=== PATIENT | female | born 1980 | race Caucasian/White ===

== ENCOUNTER 2019-07-27 11:34 | Emergency (ER) | payer SELFPAY ==
[~2019-07-27] VITALS: Ht 170.2 cm; Wt 64.4 kg
[2019-07-27 12:21] LABS: URINE HCG NEGATIVE (NEG)
[2019-07-27 12:38] LABS: CLARITY,URINE CLEAR (Clear); COLOR,URINE STRAW (Yellow); GLUCOSE, URINE NEGATIVE (Neg); KETONES,URINE NEGATIVE (Neg); LEUKOCYTE ESTERASE ,URINE NEGATIVE (Neg); NITRITES, URINE NEGATIVE (Neg); OCCULT BLOOD,URINE NEGATIVE (Neg); PH,URINE 6.5 (4.8-8.0); PROTEIN,URINE NEGATIVE (Neg); UROBILINOGEN,URINE 0.2 E.U/dL (0.2-1.0)
[2019-07-27 12:39] LABS: UA COLLECTION TYPE CLN CATCH MIDSTREAM
[2019-07-27 13:10] LABS: BASOPHILS % (AUTO) 0.3 % (0-1); EOSINOPHILS # (AUTO) 0.1 X10'3 (0-0.9); EOSINOPHILS % (AUTO) 1.2 % (0-6); HEMATOCRIT 33.7 % (35.0-45.0); HEMOGLOBIN 10.8 g/dl (12.0-16.0); LYMPHOCYTES # (AUTO) 2.2 X10'3 (1.1-4.8); LYMPHOCYTES % (AUTO) 27.8 % (21-51); MEAN CORPUSCULAR HEMOGLOBIN 25.5 PG (27.0-31.0); MEAN CORPUSCULAR VOLUME 79.4 FL (78-98); MEAN PLATELET VOLUME 8.4 FL (7.4-10.4); MONOCYTES # (AUTO) 0.5 X10'3 (0-0.9); MONOCYTES % (AUTO) 6.4 % (2-12); NEUTROPHILS # (AUTO) 5.1 X10'3 (1.8-7.7); NEUTROPHILS % (AUTO) 64.3 % (42-75); PLATELET COUNT 267 X10'3 (140-440); RED BLOOD COUNT 4.25 X10'6 (4.20-5.60); RED CELL DISTRIBUTION WIDTH 17.6 % (11.5-14.5)
[2019-07-27 13:21] LABS: ALANINE AMINOTRANSFERASE 31 U/L (12-78); ALBUMIN 3.8 G/DL (3.4-5.0); ALBUMIN/GLOBULIN RATIO 1.1 (1.1-1.5); ALKALINE PHOSPHATASE 63 IU/L (46-116); ANION GAP 9 (8-16); ASPARTATE AMINO TRANSFERASE 25 U/L (10-37); BILIRUBIN,TOTAL 0.3 MG/DL (0.1-1.0); BLOOD UREA NITROGEN 12 MG/DL (7-18); BUN/CREATININE RATIO 13.2 (6.6-38.0); CHLORIDE 107 MMOL/L (99-107); CREATININE 0.91 MG/DL (0.40-0.90); GLUCOSE 82 MG/DL (70-104); POTASSIUM 4.6 MMOL/L (3.5-5.1); SODIUM 146 MMOL/L (135-145); TOTAL CARBON DIOXIDE 30.3 MMOL/L (24-32); TOTAL PROTEIN 7.4 G/DL (6.4-8.2); eGFR 69 ML/MIN
[2019-07-27] MEDS ORDERED: METR-159 PO (14:43)
[2019-07-27 14:46] VITALS: BP 124/73
== END 2019-07-27 14:57 | disposition home or self-care (01) ==
LOC: ER 11:35
DX: N76.0 Acute vaginitis (principal); R11.2 Nausea with vomiting, unspecified; F17.200 Nicotine dependence, unspecified, uncomplicated; F12.90 Cannabis use, unspecified, uncomplicated; Z79.899 Other long term (current) drug therapy
CPT/HCPCS: 36415; 76856; 80053; 81003; 81025; 85025; 87210; 93976; 99284; 99285

== ENCOUNTER 2019-10-23 12:26 | Emergency (ER) | payer MEDICAID ==
[~2019-10-23] VITALS: Ht 170.2 cm; Wt 66.8 kg
[2019-10-23 12:54] VITALS: BP 109/62
[2019-10-23 14:19] LABS: CLARITY,URINE CLEAR (Clear); COLOR,URINE YELLOW (Yellow); GLUCOSE, URINE NEGATIVE (Neg); KETONES,URINE NEGATIVE (Neg); LEUKOCYTE ESTERASE ,URINE NEGATIVE (Neg); NITRITES, URINE NEGATIVE (Neg); OCCULT BLOOD,URINE NEGATIVE (Neg); PROTEIN,URINE NEGATIVE (Neg); UROBILINOGEN,URINE 0.2 E.U/dL (0.2-1.0)
[2019-10-23 14:21] LABS: URINE HCG NEGATIVE (NEG)
[2019-10-23 14:26] LABS: UA COLLECTION TYPE CLN CATCH MIDSTREAM
--- NOTE | 2019-10-23 15:07 | NUR ---
ultrasound at bedside.
[2019-10-23] MEDS ORDERED: CIPR250S2 PO (15:28)
[2019-10-23] MEDS ORDERED: METR-159 PO (15:28)
== END 2019-10-23 15:42 | disposition home or self-care (01) ==
LOC: ER 12:27
DX: R10.2 Pelvic and perineal pain (principal); N83.201 Unspecified ovarian cyst, right side; N89.8 Other specified noninflammatory disorders of vagina; R11.0 Nausea; F12.90 Cannabis use, unspecified, uncomplicated; Z98.890 Other specified postprocedural states; Z79.899 Other long term (current) drug therapy
CPT/HCPCS: 36415; 76856; 81003; 81025; 87491; 87591; 93976; 99284; Q0112